=== PATIENT | male | born 1965 | race Caucasian/White ===

== ENCOUNTER → 2018-09-16 10:35 | Outpatient (CLI) | payer MEDICARE ==
[~2018-09-16 10:35] MED LIST: CELEXA20 MG PO; GABAPENTIN100 MG PO; HCTZ25 MG PO; K-TAB10 MEQ PO; LISINOPRIL20 MG PO; NAPROSYN500 MG PO; NORVASC10 MG PO; RANITIDINE HCL150 M1 PO
--- NOTE | 2018-09-22 14:39 | ST ---
PATIENT:MANISH MENON MEDICAL RECORD: [id number] SEX: M LOCATION:[facility] ORDER #: ADMISSION DATE: 09/16/18 AGE OF PATIENT: 52 REFERRING PHYSICIAN: INTERPRETING PHYSICIAN: DANY HEMPHILL MD DATE OF SERVICE: 09/16/2018 PROCEDURE: Nuclear stress test. INDICATION: Chest pain, shortness of breath, hypertension, obesity. The patient was exercised on standard Lexiscan protocol with 33 mCi of sestamibi injected at peak stress, 11 mCi was used previously for rest images. FINDINGS: Gated SPECT reveals a preserved ejection fraction of 53% with good wall motioning and thickening and brightening throughout all segments. SPECT imaging Cardiolite was used as myocardial fusion agent. There is reversibility inferoapically. This includes the basal, mid, apical, inferior segments as well as the apex itself. The degree of reversibility is moderate. The amount of myocardial involved is moderate. OVERALL IMPRESSION: This is an abnormal nuclear stress test suggestive of inferior ischemia with preserved ejection fraction. We would proceed with coronary angiography as followup study. TRANSINT:[id number] Voice Confirmation ID: [id number] DOCUMENT ID: [id number] DANY HEMPHILL MD at 1439 CC: ANGELO MARIE MD [id number] DICTATION DATE: 09/17/18 190 CLOTH BOOKER: 09/18/18 1342 DEP CLI 09/16/18 [place] [id number] [place] [address]
[2018-10-29 09:54] VITALS: BMI 55.9
== END | disposition home or self-care (01) ==
LOC: D.HCCARDIO 10:35
PROVIDERS: ATTEND Internal Medicine Interventional Cardiology
DX: R07.9 Chest pain, unspecified (principal)

== ENCOUNTER 2018-10-29 09:08 | Outpatient (CLI) | payer MEDICARE ==
[~2018-10-29] VITALS: Ht 167.6 cm; Wt 157.3 kg
--- NOTE | ~2018-10-29 | HEMODYNAMI ---
PATIENT:MANISH MENON MEDICAL RECORD: [id number] : 65 LOCATION:[facility] ADMISSION DATE: 10/29/18 Generatedon:10/29/201813:36 Patient name: MANISH MENON Patient #: [id number] SSN: D OB: 1965 Date of study: 10/29/2018 Page: Of Hemodynamic Procedure Report Patient Data Patient Demographics Procedure consent was obtained First Name: MANISH Gender: Male Last Name: SINAN : 1965 Middle Initial: TREE Age: 52 year(s) Patient #: [id number] Race: Unknown Additional ID: [id number] Contact details [address]: [address] [place] [address] State: [place] City: [place] Zip code: [address] Past Medical History Allergies: No known allergies Admission Admission Data Admission Date: 10/29/2018 Admission Time: 9:08 Procedure Procedure Types Cath Procedure Diagnostic Procedure LHC LHC w/Coronaries Procedure Description Procedure Date Procedure Date: 10/29/2018 Procedure Start Time: 13:28 Procedure End Time: 13:36 Procedure Staff Name Function Steve Mirza MD Performing Physician Diandra Ash RT Monitor Lennox Coffey RN Nurse Jonas Madrigal RT Scrub Procedure Data Cath Procedure Fluoroscopy Diagnostic fluoroscopy Total fluoroscopy Time: 1.1 time: 1.1 min min Diagnostic fluoroscopy Total fluoroscopy dose: 956 dose: 956 mGy mGy Contrast Material Contrast Material Type Amount (ml) Isovue 370 51 Entry Location Entry Primary Successful Side Size Upsize Upsize Entry Closure Winter ccessful Closure Location (Fr) 1 (Fr) 2 (Fr) Remarks Device Remarks Radial Right 6 Fr Mechanical artery Short Compression Estimated blood loss: 5 ml Diagnostic catheters Device Type Used For End Catheter Placement DIAGNOSTIC [place] 110cm 5 LV Angiography Fr catheter ([id number]) DIAGNOSTIC [place] 110cm 5 Left Coronary Fr catheter ([id number]) Angiography DIAGNOSTIC [place] 110cm 5 Right Coronary Fr catheter ([id number]) Angiography Procedure Complications No complications Procedure Medications Medication Administration Route Dosage Oxygen etCO2 Nasal cannula 2 l/min Lidocaine 2% added to field 20 Heparin Flush Bag added to field 2 bags (1000units/500ml NS) 0.9% NaCl I.V. 100 ml/hr Radial Cocktail added to field 1 syringe (Verapamil 2mg/Nitro 400mcg/Heparin 1500units) Versed I.V. 1 mg Fentanyl I.V. 100 mcg Versed I.V. 1 mg Fentanyl I.V. 50 mcg Hemodynamics Rest Heart Rate: 62 (bpm) Snapshots Pre Cath Intra NCS Post Cath Vital Signs Time Heart Resp SPO2 etCO2 NIBP (mmHg) Rhythm Pain Sedation Rate (ipm) (%) (mmHg) Status Level (bpm) 13:23:34 86 27 98 36 129/75(119) NSR 0 (11) 10(A) , No pain 13:27:46 81 22 93 28.5 124/77(99) NSR 0 (11) 10(A) , No pain 13:31:52 95 22 94 42.8 105/64(92) NSR 0 (11) 9(A) , No pain 13:34:58 88 19 94 43.5 109/54(84) NSR 0 (11) 10(A) , No pain Medications Time Medication Route Dose Verified Delivered Reason Notes Effectiveness by by 13:22:38 Oxygen etCO2 2 l/min Steve High used for Nasal Hermes Coffey RN procedure cannula 13:22:44 Lidocaine 2% added 20ml Steve Wilson for local to vial Hermes Mirza MD anesthetic field 13:22:50 Heparin Flush added 2 bags Steve Wilson used for Bag to Hermes Mirza MD procedure (1000units/500ml field NS) 13:22:59 0.9% NaCl I.V. 100 Steve Buffie Per ml/hr Hermes Coffey RN physician 13:23:08 Radial Cocktail added 1 Steve Wilson for (Verapamil to syringe Hermes Mirza MD vasodilation 2mg/Nitro field 400mcg/Heparin 1500units) 13:27:07 Versed I.V. 1 mg Steve Reisie for sedation Hermes Coffey RN 13:27:13 Fentanyl I.V. 100 mcg Steve High for sedation Hermes Coffey RN 13:29:33 Versed I.V. 1 mg Steve Reisie for sedation Hermes Coffey RN 13:29:37 Fentanyl I.V. 50 mcg Steve High for sedation Hermes Coffey RN Procedure Log Time Note 12:48:54 Time tracking: Regular hours (M-F 7:00 - 5:00) 12:48:58 Plan of Care:Hemodynamics will remain stable., Cardiac rhythm will remain stable., Comfort level will be maintained., Respiratory function will remain adequate., Patient/ family verbilizes understanding of procedure., Procedure tolerated without complication., Recovers from procedure without complications.. 13:05:25 Jonas Madrigal RT(R) sent for patient. Start room use. 13:12:44 Patient received from Pre/Post Procedure Room to CCL 1 Alert and oriented. Tansferred to table in Supine position. 13:12:45 Warm blankets applied, and orlando hugger turned on for patient comfort. 13:12:45 Correct patient and procedure confirmed by team. 13:12:47 Signed procedure consent form obtained from patient. 13:12:48 ECG and BP/O2 sat monitors applied to patient. 13:12:49 Full Disclosure recording started 13:22:27 Vital chart was started 13:22:38 Oxygen 2 l/min etCO2 Nasal cannula was administered by Lennox Coffey RN; used for procedure; 13:22:44 Lidocaine 2% 20ml vial added to field was administered by Steve Mirza MD; for local anesthetic; 13:22:50 Heparin Flush Bag (1000units/500ml NS) 2 bags added to field was administered by Steve Mirza MD; used for procedure; 13:22:59 0.9% NaCl 100 ml/hr I.V. was administered by Lennox Coffey RN; Per physician; 13:23:08 Radial Cocktail (Verapamil 2mg/Nitro 400mcg/Heparin 1500units) 1 syringe added to field was administered by Steve Mirza MD; for vasodilation; 13:24:57 Baseline sample Acquired. 13:24:59 Rhythm: sinus rhythm 13:25:10 H&P Date Dictated: 10/11/2018 Within 30 days and on chart., H&P Addendum completed by physician on day of procedure. (MUST COMPLETE FOR ALL OUTPATIENTS). 13:25:16 Pre-procedure instructions explained to patient. 13:25:16 Pre-op teaching completed and patient verbalized understanding. 13:25:18 Family in patients room. 13:25:29 Patient NPO since Midnight. 13:25:36 Patient allergic to No known allergies 13:25:38 Is the patient allergic to Iodine/contrast media? No. 13:25:39 Is patient on blood thinner?No 13:25:41 Patient diabetic? No. 13:25:44 Previous problem with sedation/anesthesia? No ? 13:25:44 Snore? Yes 13:25:45 Sleep apnea? No 13:25:46 Deviated septum? No 13:25:47 Opens mouth fully? Yes 13:25:47 Sticks out tongue? Yes 13:25:49 Airway obstruction? No ? 13:25:51 Dentures? Yes OUT 13:25:56 Pre procedure: right dorsailis pedis pulse 2+ Normal; easily identifiable; not easily obliterated 13:25:58 Modified Arie's test Ulnar < 7 seconds 13:26:00 Patient pain scale 0/10 ?. 13:26:06 IV patent on arrival in left forearm with 0.9% NaCl at KVO. 13:26:08 Lab results completed and on chart. 13:26:12 Right Radial & Right Groin area was prepped with chlora-prep and draped in sterile fashion 13:26:13 Alarms reviewed by R. N. 13:26:13 Sharps counted by scrub and verified by R.N. 13:26:14 Final Timeout: patient, procedure, and site verified with staff and physician. All members of the team are in agreement. 13:26:17 Right Radial site verified by team. 13:26:21 Maximum allowable Isovue 300 dose 300ml. Physician notified. (300ml for normal creatinines. For patients with creatinine of 1.7 or higher multiply weight(kg) x 5 divided by creatinine.) 13:26:24 Fire Safety Assessment: A--An alcohol-based skin anteseptic being used preoperatively., C--Open oxygen or nitrous oxide is being used., D--An ESU, laser, or fiber-optic light is being used. 13:26:27 Physical assessment completed. ASA score P 2 - A patient with mild systemic disease as per Steve Mirza MD. 13:26:31 Sedation plan: IV Moderate Sedation Medication:Versed, Fentanyl 13:27:07 Versed 1 mg I.V. was administered by Lennox Coffey RN; for sedation; 13:27:13 Fentanyl 100 mcg I.V. was administered by Lennox Coffey RN; for sedation; 13::41 Procedure started. 13:28:46 Local anesthetic to right radial artery with Lidocaine 2% by Steve Mirza MD.INITIAL ACCESS ONLY 13:28:53 A 6 Fr Short sheath was inserted into the Right Radial artery 13:28:58 Use device set Radial Dx or PCI 13::59 ACIST Syringe (54853) opened to sterile field. 13:29:00 Medline Cath Pack ([id number]) opened to sterile field. 13:29:00 Bag Decanter (2002S) opened to sterile field. 13:29:00 DIAGNOSTIC WIRE .035 260cm J wire (749936) opened to sterile field. 13:29:01 ACIST Hand Control (37198) opened to sterile field. 13:29:01 ACIST Manifold (85714) opened to sterile field. 13:29:02 Tegaderm 4 x 4 (1626W) opened to sterile field. 13:29:02 MBrace Wrist Support ([id number]) opened to sterile field. 13:29:03 SHEATH 6FR Slender (12-5607) opened to sterile field. 13:29:12 A DIAGNOSTIC [place] 110cm 5 Fr catheter (177187) was advanced over the wire and used for LV Angiography. 13:29:15 Zero performed for pressure channel P1 13:29:22 Zero performed for pressure channel P1 13:29:33 Versed 1 mg I.V. was administered by Lennox Coffey RN; for sedation; 13::34 LV gram done using TURK 13:29:37 Fentanyl 50 mcg I.V. was administered by Lennox Coffey RN; for sedation; 13:29:38 Injector settings: Ml/sec: 5, Volume: 15, 13:31:03 A DIAGNOSTIC [place] 110cm 5 Fr catheter (636324) was advanced over the wire and used for Left Coronary Angiography. 13:32:12 A DIAGNOSTIC [place] 110cm 5 Fr catheter (884688) was advanced over the wire and used for Right Coronary Angiography. 13:32:14 Catheter removed. 13:32:20 TR BAND Large ([id number]) opened to sterile field. 13:33:03 Sheath removed intact; hemostasis achieved with Mechanical Compression to the Right Radial artery. 13:33:05 Procedure ended.(Physican Out) 13:33:21 Fluoroscopy time 01.10 minutes. 13:33:26 Fluoroscopy dose: 956 mGy 13:33:26 Flurop Dose total: 956 13:33:35 Contrast amount:Isovue 370 51ml. 13:33:37 Sharps counted by scrub and verified by R.N. 13:33:38 Insertion/operative site no bleeding no hematoma. 13:33:44 Post right radial artery:stable, clean and dry 13:33:45 Post Procedure Pulses reassessed and unchanged 13:33:49 Post-procedure physical assessment completed. ASA score P 2 - A patient with mild systemic disease as per Stvee Mirza MD. 13:33:51 Post procedure rhythm: unchanged. 13:33:54 Estimated blood loss: 5 ml 13:33:59 Post procedure instruction explained to patient.Patient verbalizes understanding. 13:33:59 Patient needs reinforcement of post procedure teaching. 13:34:06 Procedure Complication : No complications 13:34:08 See physician's report for complete and final results. 13:34:23 Procedure and supply charges have been captured, reviewed, submitted and are correct. 13:35:55 Vital chart was stopped 13:35:57 Report given to Pre/Post Procedure Room. 13:35:59 Patient transfered to Pre/Post Procedure Room with Stretcher. 13:36:09 Procedure ended. 13:36:09 Full Disclosure recording stopped 13:36:11 End room use (Document Last) Device Usage Item Name Manufacture Quantity Catalog Hospital Part Current Minimal Lot# / Number Charge Number Stock Stock Serial# Code ACIST Acist 1 85011 726502 718022 265684 20 Syringe Medical (88223) Systems Inc Medline Medline 1 [id number] 852651 18613 226527 5 Cath Pack ([id number]) Bag Microtek 1 296097 89128 232562 5 Decanter Medical Inc. () DIAGNOSTIC St Fer 1 335929 513830 335460 673689 30 WIRE .035 260cm J wire (635638) ACIST Hand Acist 1 29858 498416 801248 443025 5 Control Medical (84525) Systems Inc ACIST Acist 1 38365 697992 899829 961195 5 Manifold Medical (56150) Systems Inc Tegaderm 4 3M 1 1626W 753860 161984 632862 5 x 4 (1626W) MBrace Advanced 1 140-0250-00 493192 46269 649932 5 Wrist Vascular Support Dynamics ([id number]) SHEATH 6FR Terumo 1 [id number] 508172 937800 277662 5 Slender (80-1060) DIAGNOSTIC Terumo 1 40-4093 731036 887669 265519 5 [place] 110cm 5 Fr catheter (577606) TR BAND Terumo 1 [id number] 552629 075368 845039 40 Large ([id number]) Signature Audit [place] Stage Time Signature Unsigned Intra-Procedure 10/29/2018 Diandra 1:36:21 PM Counts RT(R) Signatures Monitor : Diandra Signature : Counts RT Date : Time : [facility] [address] [place] [address]
[2018-10-29] MEDS ORDERED: HCTZ25 MG PO (09:45)
[2018-10-29] MEDS ORDERED: NORVASC10 MG PO (09:45)
[2018-10-29] MEDS ORDERED: RANITIDINE HCL150 M1 PO (09:45)
[2018-10-29] MEDS ORDERED: NAPROSYN500 MG PO (09:45)
[2018-10-29] MEDS ORDERED: LISINOPRIL20 MG PO (09:45)
[2018-10-29] MEDS ORDERED: CELEXA20 MG PO (09:46)
[2018-10-29] MEDS ORDERED: K-TAB10 MEQ PO (09:46)
[2018-10-29] MEDS ORDERED: GABAPENTIN100 MG PO (09:47)
[2018-10-29 09:54] VITALS: BP 122/74; Ht 167.6 cm; Wt 157.3 kg
[2018-10-29 10:15] LABS: BASOPHILS 0.4 % (0-2); EOSINOPHILS 1.4 % (0-7); HEMATOCRIT 41.8 % (42.0-54.0); HEMOGLOBIN 14.8 g/dL (13.5-17.5); IMMATURE GRANULOCYTES 0.2 % (0-5); LYMPHOCYTES 22.2 % (15-50); MCH 32.6 pg (26.0-34.0); MCHC 35.4 g/dL (31.0-37.0); MCV 92.1 fL (80.0-100.0); MEAN PLATELET VOLUME 11.1 fL (7.4-10.4); MONOCYTES 9.3 % (2-11); NEUTROPHILS 66.5 % (40-80); PLATELET COUNT 159 10x3/uL (130-400); RBC 4.54 10x6/uL (4.20-6.10); RDW 14.1 % (11.5-14.5); WBC 8.6 10x3/uL (4.8-10.8)
[2018-10-29 10:26] LABS: ANION GAP 12.4 mmol/L (8-16); CALCIUM 9.1 mg/dL (8.5-10.1); CARBON DIOXIDE 28.4 mmol/L (21.0-32.0); CREATININE - SERUM 1.1 mg/dL (0.6-1.3); POTASSIUM - SERUM 3.8 mmol/L (3.5-5.1)
--- NOTE | 2018-10-29 13:48 | NUR ---
PT ARRIVED BY STRETCHER. PLACED ON MONITORS. ASSESSMENT COMPLETED. CALL LIGHT WITHIN REACH.
--- NOTE | 2018-10-29 14:00 | NUR ---
RIGHT RADIAL TR BAND IN PLACE. NO BLEEDING/HEMATOMA NOTED. VSS. PT RESTING COMFORTABLY.
--- NOTE | 2018-10-29 14:29 | NUR ---
ELECTRICAL APPLIANCE SERVICER AT BEDSIDE FOR ECHO. 3cc REMOVED FROM TR BAND. PT TOLERATED WELL. VSS AT THIS TIME. PT STILL DROWSY, BUT AROUSES EASILY. NO BLEEDING/HEMATOMA NOTED AT WRIST SITE.
--- NOTE | 2018-10-29 14:50 | NUR ---
PT'S HEAD OF BED INC TO 30 DEGREES. 3cc OF AIR REMOVED FROM TR BAND. TOLERATED WELL. SET UP WITH SANDWICH TRAY AND DRINK.
--- NOTE | 2018-10-29 15:10 | NUR ---
LEFT ARM PIV D/C'D WITH CATH TIP INTACT. PT TOLERATED WELL. RIGHT WRIST TR BAND IN PLACE. NO BLEEDING/HEMATOMA NOTED. 3cc OF AIR REMOVED. TOLERATED WELL. PT INSTRUCTED TO GET UP AND DRESSED.
--- NOTE | 2018-10-29 15:21 | NUR ---
DR. HEMPHILL ROUNDED AND SPOKE WITH PT.
--- NOTE | 2018-10-29 15:22 | NUR ---
RIGHT RADIAL TR BAND REMOVED. DRESSING APPLIED. NO BLEEDING/HEMATOMA NOTED. RIGHT WRIST BRACE IN PLACE. PT INSTRUCTED TO KEEP ON FOR 2 HOURS AFTER ARRIVAL HOME AND THEN MAY REMOVE. HE VOICED UNDERSTANDING.
--- NOTE | 2018-10-29 15:34 | NUR ---
DISCUSSED DISCHARGE INSTRUCTIONS WITH PT. HE VOICED UNDERSTANDING.
--- NOTE | 2018-10-29 15:40 | NUR ---
PT TAKEN OUT TO VEHICLE BY WHEELCHAIR. NO S/S OF DISTRESS NOTED. ALL BELONGINGS AND PAPERWORK IN HAND.
--- NOTE | 2018-11-05 11:27 | EC ---
PATIENT:MANISH MENON DATE OF SERVICE: 10/29/18 SEX: M MEDICAL RECORD: [id number] DATE OF : 65 LOCATION:D[facility] AGE OF PATIENT: 53 ADMISSION DATE: 10/29/18 REFERRING PHYSICIAN: INTERPRETING PHYSICIAN: DANY MIRZA MD ECHOCARDIOGRAM REPORT ECHO CHARGES 5 ECHO LIMITED Date: 10/29/18 1 DOPPLER ECHO COLOR FLOW 2 DOPPLER ECHO PULSE CLINICAL DIAGNOSIS: DILATED CARDIOMYOPATHY ECHOCARDIOGRAPHIC MEASUREMENTS (adult normal given) AC root (d.<3.7cm) 0 cm LV Septum d (<1.2 cm> 0 cm Valve Excursion 0 cm LV Septum (systole) 0 cm Left Atria (s.<4.0cm> 0 cm LVPW d(<1.2cm) 0 cm RV (d.<2.3cm) 0 cm LVPW (sytole) 0 cm LV diastole(<5.6CM) 0 cm MV E-F(>70mm/sec) 0 cm LV systole 0 cm LVOT Diameter 0 cm MV exc.(>10mm) 0 cm Est.ejection fraction (50-75%) 0 % DOPPLER: LVIT 0 cm/sec A 0 cm/sec E 0 cm/sec LA 0 cm/sec RVSP 19.3 mmHg LVOT 0 cm/sec AOP1/2T 0 m/s Asc. Ao 0 cm/sec RVOT 0 cm/sec RA 0 cm/sec PA 0 cm/sec AV Gradient Peak 0 mmHg AV Mean 0 mmHg AV Area 0 cm MV Gradient Peak 0 mmHg MV Mean 0 mmHg MV Area 0 cm COMMENTS: LIMITED STUDY (2-D,COLOR,DOPPLER) Program Instructor: Roni JENKINS [place] General Accounting Manager: 1 Dr. Mirza TAPE# PACS Pericardial Effusion N DATE OF SERVICE: PROCEDURE: Limited echo for ejection fraction and valvular structures. FINDINGS: 1. Left ventricular chamber size is within normal limits. Left ventricular systolic function is normal. Overall ejection fraction estimated at 55%. 2. Left atrium, right atrium, and right ventricular chamber sizes are within normal limits. 3. Valvular structures have normal structure and motion. ECHOCARDIOGRAM REPORT [id number] MANISH MENON 4. Doppler interrogation reveals only trace mitral regurgitation, trace tricuspid regurgitation, no other valvular insufficiency or stenosis. TRANSINT:[id number] Voice Confirmation ID: [id number] DOCUMENT ID: [id number] DANY MIRZA MD at 1127 CC: [id number] DICTATION DATE: 10/30/18 1154 METAL MACHINIST: 10/30/18 1212 DEP CLI 10/29/18 [place] [id number] [place] [id number]
--- NOTE | 2018-11-05 11:27 | OP ---
PATIENT NAME: MANISH MENON MEDICAL RECORD: [id number] :65 LOCATION:D.CAT ADMISSION DATE: SURGEON: DANY HEMPHILL MD DATE OF OPERATION: 10/29/2018 PROCEDURES: 1. Left heart catheterization. 2. Selective coronary angiography. 3. Left ventriculogram. INDICATION: Angina, coronary artery disease, and shortness of breath. PROCEDURE IN DETAIL: After informed consent was obtained and after a detailed description of the risks, benefits as well as alternative therapies, the patient elected to proceed with angiogram and heart catheterization. The right radial area was prepped and draped in normal sterile fashion. Right radial artery was cannulated via modified Seldinger technique with placement of 5-Nauruan sheath. All catheters exchanged through this sheath. FINDINGS: Left ventriculogram was performed in standard 30-degree TURK view, reveals good cardiac wall motion, ejection fraction 55%. SELECTIVE CORONARY ANGIOGRAPHY: Left main, left anterior descending, left circumflex, right coronary artery are a very large vessels mildly ectatic mildly diffusely diseased, but no flow-limiting stenosis. OVERALL IMPRESSION: No significant coronary artery disease is present. Normal left ventricular function. Symptomatology is noncardiac in etiology. No further cardiac workup needs to be ascertained. TRANSINT:[id number] Voice Confirmation ID: [id number] DOCUMENT ID: [id number] DANY HEMPHILL MD at 1127 CC: [id number] DICTATION DATE: 10/29/18 1449 MANAGER DIGITAL AD OPERATIONS: 10/29/18 2349 DEP CLI 10/29/18 [place] [id number] [place] [id number]
== END 2018-10-29 15:40 | disposition home or self-care (01) ==
LOC: D.CATH 09:08
PROVIDERS: ATTEND Internal Medicine Interventional Cardiology
DX: I20.9 Angina pectoris, unspecified (principal); R06.02 Shortness of breath; Z01.812 Encounter for preprocedural laboratory examination